=== PATIENT | female | born 1985 | race Caucasian/White ===

== ENCOUNTER 2018-10-27 10:52 | Day surgery (SDC) | payer OTHER ==
[~2018-10-27] VITALS: Ht 175.3 cm; Wt 69.4 kg
[2018-10-27] VITALS (13 sets, daily range): BP systolic 103–124; BP diastolic 56–75; PULSE 18–92; RESP 12–22; Ht 175.3 cm; Wt 69.4 kg
--- NOTE | 2018-10-27 06:27 | PREOPHP ---
DATE OF ADMISSION: 10/27/2018 HISTORY OF PRESENT ILLNESS: A 32-year-old patient is going to be admitted for diagnostic arthroscopy of right knee, partial medial and lateral meniscectomy, possible repair, synovectomy and application of Middleton dressing. This patient has been experiencing knee pain for quite a while. Conservative treatment resulted in l imited benefit to the patient. The patient has requested surgical intervention. PAST MEDICAL HISTORY: Unremarkable. SOCIAL HISTORY: Used to smoke previously and supposed to stop by time of surgery. FAMILY HISTORY: Negative. PREVIOUS SURGERY: Fracture tib-fib, open reduction internal fixation was done in 2018. MEDICATIONS: 1. Advil. 2. Trazodone. 3. Gabapentin. 4. Sulindac. 5. Folic acid. 6. D3. 7. Baclofen. 8. Postop ibuprofen and Bactrim-DS were given. ALLERGIES: NO HISTORY OF ALLERGY TO MEDICATION. PHYSICAL EXAMINATION: VITAL SIGNS: Height of 5 feet, 10 inches, weighing 154 pounds. SKIN: Within normal limits. ENT: PERRLA. HEAD AND NECK: Normocephalic. Trachea midline. Bilateral symmetrical carotid pulses. No mass, no bruit, no lymphadenopathy. CARDIOVASCULAR: Normal sinus rhythm. S1, S2 normal. No murmur, no JVD, no peripheral edema. LUNGS: Clear. ABDOMEN: Soft, scaphoid. No organomegaly. No mass. Bowel sounds present. GENITOURINARY AND RECTAL: Not done, not pertinent to this admission. MUSCULOSKELETAL: Head and neck are unremarkable. Upper extremities are normal. Spine shows there i s tenderness over the L4-5 and L5-S1 facet joints. Range of motion ____. Hips seems to be normal. Bilateral knees show symmetrical appearance. No muscle atrophy. Range of motion seems to be symmetr ical however on the right lack of full extension and flexion. There is tenderness over the medial as well as lateral tibiofemoral joint line. There is tenderness over the patellofemoral joint line, but however, it seems to be minimal in nature. There is no insta bility. Tom test seems to be positive. MRI report of the right knee indicates postoperative changes with the proximal tibia ____ imaging qu ality. DIAGNOSES 1. Torn medial meniscus. 2. Torn lateral meniscus. 3. Synovitis. Treatment plan, alternatives, risks and benefits were discussed. The patient understands possible co mplications from surgery such as infection, bleeding, nerve damage, vascular damage, possibility of d eep venous thrombosis, pulmonary embolism, hypersensitivity from medication and even . [place] re sult may not be obtained depending on actual finding, known or unknown factor or factors. No guarant ee is being made. Formal H and P is supposed to be done by PCP. Dictated By: YASMEEN PINTO/ISHA Conf#: [id number] DID#: [id number]
[~2018-10-27 10:52] MED LIST: ACET500C5 PO; CEFAZOLIN 2 GM/50 ML (PMX) 50 ML IVPB SCH; ONDA4TAB35 PO
[2018-10-27] MEDS ORDERED: CEFAZOLIN 1 GM INJ IVPB ONE (10:53)
[2018-10-27] MEDS ORDERED: BACL10TA PO (11:42)
[2018-10-27] MEDS ORDERED: TRAZ-111 PO (11:43)
[2018-10-27] MEDS ORDERED: GABA300C16 PO (11:43)
[2018-10-27] MEDS ORDERED: LACTATED RINGER'S 1,000 ML IV SCH (12:00)
[2018-10-27] MEDS ORDERED: EPINEPHrine 1 MG/ML 30 ML INJ ONE (13:48)
--- NOTE | 2018-10-27 13:54 | PREAC ---
Date/Time of Note Date/Time of Note DATE: 10/27/18 TIME: 13:49 Anesthesia Eval and Record Evaluation Time Pre-Procedure Interview DATE: 10/27/18 TIME: 13:49 Age 32 Sex female NPO: 8 hrs Preoperative diagnosis right knee meniscus tear Planned procedure right arhroscopy partial medi, lat, menisectomy repai synovectomy floyd dressing Past Medical History Past Medical History: None Surgery & Anesthesia Issues No known issue Meds Anticoagulation: No Beta Leticia within 24 hr: No Reason Beta Leticia not given: Pt. not on B-Leticia Reported Medications Trazodone Hcl* (Trazodone Hcl*) 50 Mg Tablet, 50 MG PO QHS, #30 TAB 10/27/18 Gabapentin* (Gabapentin*) 300 Mg Capsule, 300 MG PO BID, #60 CAP 10/27/18 Baclofen* (Baclofen*) 10 Mg Tablet, 10 MG PO DAILY, TAB 10/27/18 Discontinued Scripts Acetaminophen* (Tylophen*) 500 Mg Capsule, 1 CAP PO Q6H PRN for PAIN AND OR ELEVATED TEMP, #20 CAP Prov:JUAN ZARATE PA-C 12/30/15 Ondansetron Hcl* (Zofran* ODT) 4 mg -ODT Tab.disper, 4 MG PO Q4H PRN for NAUSEA AND OR VOMITING, #10 TAB Prov:JUAN ZARATE PA-C 12/30/15 Current Medications Cefazolin Sodium/ Dextrose 50 ml @ 100 mls/hr PREOP IVPB ; Start 10/27/18 at 06:30; Stop 10/27/18 at 20:00 Lactated Ringer's 1,000 ml @ 25 mls/hr Q24H IV Last administered on 10/27/18at 11:53; Admin Dose 25 MLS/HR; Start 10/27/18 at 12:00 Meds reviewed: Yes Allergies Coded Allergies: No Known Allergy (Unverified , 10/27/18) Allergies Reviewed: Yes Labs/Studies Labs Reviewed: Reviewed by anesthesiologist test: Negative Studies: ECG (n/sa), CXR (n/a) Pre-procedure Exam Last vitals Vital Signs Date Temp Pulse Resp B/P (MAP) Pulse Ox O2 O2 Flow FiO2 Time Delivery Rate 10/27/18 98.7 71 16 115/56 98 Room Air 11:51 (75) Airway: Adequate mouth opening Mallampati: Mallampati I Teeth: Normal Lung: Normal Heart: Normal ASA Physical Status ASA physical status: 1 Emergency: None Planned Anesthetic General/MAC: LMA Planned Pain Management Parenteral pain med Pre-operative Attestations Prior to commencing anesthesia and surgery, the patient was re-evaluated, there was verification of: *The patient's identity *The results of appropriate recent lab work and preoperative vital signs *The above evaluation not changing prior to induction *Anesthetic plan, risk benefits, alternative and complications discussed with patient/family; questions answered; patient/family understands, accepts and wishes to proceed. ASHIA REYNOLDS MD Oct 27, 2018 13:54
[2018-10-27] MEDS ORDERED: OXYCODONE/ACETAMINOPHEN (5/325) TAB PO PRN ×2 (14:00)
[2018-10-27] MEDS ORDERED: DIPHENHYDRAMINE 50 MG INJ IV PRN (14:00)
[2018-10-27] MEDS ORDERED: KETOROLAC 30 MG INJ IV PRN (14:00)
[2018-10-27] MEDS ORDERED: ONDANSETRON 4 MG INJ IV PRN (14:00)
[2018-10-27] MEDS ORDERED: MEPERIDINE 25 MG INJ IV PRN (14:00)
[2018-10-27] MEDS ORDERED: HYDROmorphONE 1 MG/5 ML IV SYRINGE IV PRN ×3 (14:00)
[2018-10-27] MEDS ORDERED: PROPOFOL 20 ML ONE (14:09)
[2018-10-27] MEDS ORDERED: CEFAZOLIN 1 GM INJ ONE (14:09)
[2018-10-27] MEDS ORDERED: MIDAZOLAM 1 MG/ML 2 ML INJ ONE (14:09)
[2018-10-27] MEDS ORDERED: METOCLOPRAMIDE 10 MG INJ ONE (14:09)
[2018-10-27] MEDS ORDERED: FENTAnyl 50 MCG/ML VIAL ONE (14:09)
[2018-10-27] MEDS ORDERED: ONDANSETRON 4 MG INJ ONE (14:09)
[2018-10-27] MEDS ORDERED: HYDROmorphONE 2 MG/ML SYG ONE (14:35)
[2018-10-27] MEDS ORDERED: morphine SULFATE/PF (10 MG/10 ML) INJ ONE (15:04)
[2018-10-27] MEDS ORDERED: KETOROLAC 30 MG INJ ONE (15:11)
--- NOTE | 2018-10-27 15:25 | SIPON ---
Date/Time of Note Date/Time of Note DATE: 10/27/18 TIME: 15:20 Operative Report Preoperative Diagnosis Torn medial , and lateral meniscus Right knee Postoperative Diagnosis The same Operation/Procedure Performed Diagnostic scope, partial medial, lateral meniscectomy, lateral meniscal repair and Middleton dressing application Surgeon Yasmeen Paula expanded function dental assistant polysomnographic technician Anesthesia: general Estimated blood loss: minimal Transfusion Required none Specimen none Grafts/Implants none Complications none YASMEEN ESCAMILLA MD Oct 27, 2018 15:25
[2018-10-27] MEDS ORDERED: HYDROCODONE/APAP (5/325) TAB PO PRN (15:30)
--- NOTE | 2018-10-27 18:10 | PAC ---
Date/Time of Note Date/Time of Note DATE: 10/27/18 TIME: 18:10 Post-Anesthesia Notes Post-Anesthesia Note Last documented vital signs Vital Signs Date Temp Pulse Resp B/P (MAP) Pulse Ox O2 O2 Flow FiO2 Time Delivery Rate 10/27/18 98.2 62 12 108/69 96 Room Air 16:14 (82) 10/27/18 2.0 15:34 Activity: WNL Respiratory function: WNL Cardiovascular function: WNL Mental status: Baseline Pain reasonably controlled: Yes Hydration appropriate: Yes Nausea/Vomiting absent: No ASHIA REYNOLDS MD Oct 27, 2018 18:10
--- NOTE | 2018-10-27 19:45 | OPR ---
DATE OF OPERATION: 10/27/2018 PREOPERATIVE DIAGNOSES: Torn medial and torn lateral meniscus, right knee, with possible synovitis. POSTOPERATIVE DIAGNOSES: 1. Torn medial meniscus, right knee 2. Torn lateral meniscus, right knee. PROCEDURE: Diagnostic arthroscopy, partial medial meniscectomy, partial lateral meniscectomy, latera l meniscal repair and application of Middleton dressing. ANESTHESIA: General. BLEEDING: Minimal. COMPLICATIONS: None. DESCRIPTION OF PROCEDURE: The patient was transferred to the operating room and placed on the operat ing table in supine position. General anesthesia was induced. A gram of Ancef was given IV. Landma rks were marked, 2 regular, 2 anterior portals, 1 medial and 1 lateral to the patellar tendon. Oper ative arthroscopy was commenced. Examination of suprapatellar pouch indicated normal finding. Guzman lofemoral indicated articular surface circulation. There was ____ grade II and the patella was engag ing 40 degrees in trochlear groove. Medial and lateral gutter was clear of loose body. Going to the medial compartment, the articular surface looked good with minimal fibrillation. There was a flap t ear at the root of the posterior horn of the medial meniscus with thinning of the part of the posteri or one-third. Partial medial meniscectomy to stable margins were done. The ACL was intact. The lat eral meniscus showed a small flap tear anteriorly. A partial lateral meniscectomy was done. However , on the posterior one-third and anterior one-third, that was unstable but could be connected togethe r. 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 Therefore, using the FasT-Fix, the posterior one-third was stabilized and we used the meniscal mender set to stabilize the anterior one-third. The suture t he front was buried in the subcutaneous tissue. The excess suture from that was removed after tighte rosalino of the suture. This repair was built on a bleeding margin. This was evacuated from debris with copious saline irrigation. The portal was closed with benzoin and Steri-Strips and also the small i ncision with 4 mm for the burying of the suture of PDS #1. After application of benzoin and Steri-St rips, Middleton dressing was applied. The procedure was terminated. General anesthesia was stopped. Th e patient was taken to recovery room in good and stable condition. Dictated By: YASMEEN PINTO/ISHA Conf#: [id number] DID#: [id number]
== END 2018-10-27 18:10 | disposition home or self-care (01) ==
LOC: SDS 10:52
PROVIDERS: ATTEND Internal Medicine Endocrinology, Diabetes & Metabolism
DX: S83.281D Other tear of lateral meniscus, current injury, right knee, subsequent encounter (principal); S83.241D Other tear of medial meniscus, current injury, right knee, subsequent encounter; X58.XXXD Exposure to other specified factors, subsequent encounter
CPT/HCPCS: 29880; 84703; C1713; J0171; J0690; J1170; J1885; J2175; J2250; J2274; J2405; J2765; J3010; Z7512; Z7610